=== PATIENT | male | born 1945 | race Caucasian/White ===

== ENCOUNTER 2017-03-26 16:36 | Inpatient (IN) | payer MEDICARE, OTHER ==
[~2017-03-26] VITALS: Ht 177.8 cm; Wt 88.5 kg
[2017-03-26 17:42] LABS: Basophils # (auto) 0 uL; Basophils % (auto) 0.1 % (0.0-2.0); Eosinophils # (auto) 0 uL; Eosinophils % (auto) 0.4 % (0.0-7.0); Hematocrit 38.5 % (41.0-53.0); Hemoglobin 13.3 g/dL (13.5-17.5); Lymphocytes # (auto) 0.6 uL; Lymphocytes % (auto) 6.7 % (10.0-50.0); Mean Corpuscular Hemoglobin 31.8 pg (28.0-32.0); Mean Corpuscular Hgb Conc. 34.5 g/dL (32.0-36.0); Monocytes # (auto) 0.6 uL; Neutrophils # (auto) 7.6 uL; Neutrophils % (auto) 85.8 % (37.0-80.0); Platelet Count (auto) 215 10^3/uL (140-450); Red Blood Cells 4.19 10^6/uL (4.5-5.90); Red Cell Distribution Width 12.9 % (11.8-14.3); White Blood Cell 8.9 10^3/uL (4.4-10.8)
[2017-03-26 17:45] LABS: Albumin 3.1 g/dL (3.4-5.0); BUN/Creatinine Ratio 8.8; Bilirubin, Total 0.5 mg/dL (0.2-1.0); Calcium 7.7 mg/dL (8.5-10.1); Potassium 3.6 mmol/L (3.5-5.1); Total Protein 6.1 g/dL (6.4-8.2)
[2017-03-26] MEDS ORDERED: SODIUM CHLORIDE 0.9% 500 ML IV ONE (17:57)
[2017-03-26 19:40] LABS: Urine Bacteria NONE SEEN /hpf (None Seen); Urine Blood Negative /uL (Negative); Urine Specific Gravity 1.015 (1.001-1.035); Urine WBC 2 /hpf (0 - 3)
[2017-03-26] MEDS ORDERED: TEMAZEPAM 15 MG CAP PO PRN (19:45)
[2017-03-26] MEDS ORDERED: ONDANSETRON HCL 4 MG/2 ML VIAL IV PRN (19:45)
[2017-03-26] MEDS ORDERED: DEXTROSE (50%) 50ML SYRG IV PRN (19:45)
[2017-03-26] MEDS ORDERED: NITROGLYCERIN 0.4 MG SL TAB SL PRN (19:45)
[2017-03-26] MEDS ORDERED: DOCUSATE SOD 100 MG CAP PO PRN (19:45)
[2017-03-26] MEDS ORDERED: ALBUTEROL SULF 2.5 MG/0.5ML(0.5%) NEB SOLN NEB PRN (19:45)
[2017-03-26] MEDS ORDERED: MORPHINE SULFATE 10 MG/ML INJ 1ML SDV IV PRN ×2 (19:45)
[2017-03-26] MEDS ORDERED: HYDROcodone-ACET 5/325MG TAB PO PRN (19:45)
[2017-03-26] MEDS ORDERED: ACETAMINOPHEN 325 MG TAB PO PRN (19:45)
[2017-03-26] MEDS ORDERED: cefTRIAXone 1GM/10ml IVPUSH 10 ML IV ONE (19:45)
[2017-03-26] MEDS: SODIUM CHLORIDE 0.9% 1,000 ML IV SCH ×2 (20:19→23:14)
[2017-03-26] MEDS: AZITHROMYCIN 500MG/ 250ML 250 ML IV ONE ×2 (20:23→20:41)
[2017-03-26 21:50] VITALS: BP 155/82
[2017-03-26] MEDS ORDERED: FAMOTIDINE 20 MG TAB PO SCH (22:00)
[2017-03-26 22:26] LABS: Hematocrit 37.8 % (41.0-53.0); Hemoglobin 13.1 g/dL (13.5-17.5)
[2017-03-26 22:30] VITALS: BP 155/82
[2017-03-26 22:56] VITALS: BP 143/89
[2017-03-26] MEDS: InsuLIN REG 1unit/0.01ml Soln (100units/ml) SC SCH (23:13)
[2017-03-26] MEDS: ACCU-CHEK COMFORT CURVE STRIP VI SCH (23:13)
[2017-03-27 05:00] VITALS: BP 153/78
[2017-03-27 06:39] LABS: Basophils # (auto) 0 uL; Basophils % (auto) 0.3 % (0.0-2.0); Eosinophils # (auto) 0.1 uL; Hematocrit 36.4 % (41.0-53.0); Hemoglobin 12.6 g/dL (13.5-17.5); Lymphocytes # (auto) 0.8 uL; Lymphocytes % (auto) 8.1 % (10.0-50.0); Mean Corpuscular Hemoglobin 32.1 pg (28.0-32.0); Mean Corpuscular Hgb Conc. 34.7 g/dL (32.0-36.0); Mean Corpuscular Volume 92.5 fL (80.0-100.0); Monocytes % (auto) 10.2 % (0.0-12.0); Neutrophils # (auto) 7.8 uL; Neutrophils % (auto) 80.4 % (37.0-80.0); Platelet Count (auto) 196 10^3/uL (140-450); Red Blood Cells 3.94 10^6/uL (4.5-5.90); Red Cell Distribution Width 12.9 % (11.8-14.3); White Blood Cell 9.7 10^3/uL (4.4-10.8)
[2017-03-27 06:49] LABS: INR 1.01 (0.9-1.15)
[2017-03-27] MEDS: ACCU-CHEK COMFORT CURVE STRIP VI SCH ×2 (06:59→12:35)
[2017-03-27] MEDS: InsuLIN REG 1unit/0.01ml Soln (100units/ml) SC SCH ×2 (07:00→11:30)
[2017-03-27 07:03] LABS: Albumin 2.8 g/dL (3.4-5.0); BUN/Creatinine Ratio 8.1; Bilirubin, Total 0.9 mg/dL (0.2-1.0); Calcium 7.7 mg/dL (8.5-10.1); Potassium 3.5 mmol/L (3.5-5.1); Total Protein 5.6 g/dL (6.4-8.2)
[2017-03-27] MEDS ORDERED: LORazepam 2MG/ML-1ML VIAL IV PRN (09:00)
[2017-03-27 09:20] VITALS: BP 146/70
[2017-03-27] MEDS: AZITHROMYCIN 500MG/ 250ML 250 ML IV SCH (12:34)
[2017-03-27] MEDS: cefTRIAXone 1GM/10ml IVPUSH 10 ML IV SCH (12:34)
[2017-03-27] MEDS: Boost Glucose Control 8 Ounces PO SCH ×3 (12:34→17:10)
[2017-03-27] MEDS: MULTIPLE VITAMIN TAB PO SCH (12:34)
[2017-03-27 12:43] VITALS: BP 144/84
[2017-03-27 13:56] LABS: Partial Thromboplastin Time 24.6 sec (22.64-33.71); Prothrombin Time 10.9 sec (9.37-12.3)
[2017-03-27] MEDS: CLINDAMYCIN 600MG IV 50 ML IV SCH ×2 (16:30→21:17)
[2017-03-27] MEDS ORDERED: IOHEXOL 300 MG/ML 100ML BOTTLE IJ ONE (16:38)
[2017-03-27 16:39] VITALS: BP 141/71
[2017-03-27 21:16] VITALS: BP 146/76
[2017-03-27] MEDS: PANTOPRAZOLE 40 MG/10 ML VIAL IV SCH (21:17)
[2017-03-27] MEDS: SODIUM CHLORIDE 0.9% 1,000 ML IV SCH (22:00)
[2017-03-28 04:45] VITALS: BP 142/80
[2017-03-28] MEDS: CLINDAMYCIN 600MG IV 50 ML IV SCH (06:06)
[2017-03-28 07:12] LABS: Basophils # (auto) 0 uL; Basophils % (auto) 0.3 % (0.0-2.0); Eosinophils # (auto) 0.2 uL; Eosinophils % (auto) 3.5 % (0.0-7.0); Hematocrit 37.4 % (41.0-53.0); Hemoglobin 12.7 g/dL (13.5-17.5); Lymphocytes # (auto) 0.9 uL; Lymphocytes % (auto) 12.5 % (10.0-50.0); Mean Corpuscular Hemoglobin 31.6 pg (28.0-32.0); Mean Corpuscular Hgb Conc. 33.9 g/dL (32.0-36.0); Mean Corpuscular Volume 93.1 fL (80.0-100.0); Monocytes # (auto) 0.9 uL; Neutrophils # (auto) 4.9 uL; Neutrophils % (auto) 70.7 % (37.0-80.0); Nucleated Red Blood Cells % 0.1 %; Platelet Count (auto) 207 10^3/uL (140-450); Red Blood Cells 4.02 10^6/uL (4.5-5.90); Red Cell Distribution Width 13.1 % (11.8-14.3); White Blood Cell 6.9 10^3/uL (4.4-10.8)
[2017-03-28 07:41] LABS: BUN/Creatinine Ratio 15.6; Calcium 7.7 mg/dL (8.5-10.1); Potassium 3.7 mmol/L (3.5-5.1)
[2017-03-28] MEDS: Boost Glucose Control 8 Ounces PO SCH ×3 (08:00→18:25)
[2017-03-28 08:02] VITALS: BP 156/77
[2017-03-28] MEDS ORDERED: SODIUM CHLORIDE LOCK 10 ML ONE (08:40)
[2017-03-28] MEDS ORDERED: MIDAZOLAM HCL 5 MG/ML-1ML VIAL ONE (08:40)
[2017-03-28] MEDS ORDERED: LIDOCAINE VISCOUS 2% 15ML UD ONE (08:40)
[2017-03-28] MEDS ORDERED: fentaNYL CITRATE 100 MCG/2 ML VL ONE (08:41)
[2017-03-28] MEDS ORDERED: diphenhdrAMINE HCL 50 MG/1 ML VL ONE (08:41)
[2017-03-28] MEDS ORDERED: NALOXONE HCL 0.4 MG/ML VIAL ONE (08:41)
[2017-03-28] MEDS ORDERED: FLUMAZENIL 0.1 MG/ML INJ 10ML MDV IV ONE (08:41)
[2017-03-28] MEDS ORDERED: hydrALAZINE HCL 20 MG/ML VL IV PRN (09:00)
[2017-03-28] MEDS: cefTRIAXone 1GM/10ml IVPUSH 10 ML IV SCH (09:39)
[2017-03-28] MEDS: PANTOPRAZOLE 40 MG/10 ML VIAL IV SCH (09:39)
[2017-03-28] MEDS: AZITHROMYCIN 500MG/ 250ML 250 ML IV SCH (09:40)
[2017-03-28] MEDS: MULTIPLE VITAMIN TAB PO SCH (09:40)
[2017-03-28 11:40] VITALS: BP 142/79
[2017-03-28 16:24] VITALS: BP 134/58
[2017-03-28] MEDS: SODIUM CHLORIDE 0.9% 1,000 ML IV SCH (21:21)
[2017-03-28] MEDS: PANTOPRAZOLE 40 MG TAB PO SCH (21:21)
[2017-03-28 22:00] VITALS: BP 70/143
[2017-03-29 05:45] VITALS: BP 137/74
[2017-03-29 07:11] LABS: BUN/Creatinine Ratio 16.9; Calcium 8.2 mg/dL (8.5-10.1); Potassium 3.9 mmol/L (3.5-5.1)
[2017-03-29 08:04] VITALS: BP 131/71
[2017-03-29] MEDS ORDERED: AZIT250T7 PO (09:42)
[2017-03-29] MEDS ORDERED: AMOX-263 PO (09:42)
[2017-03-29] MEDS ORDERED: AZITHROMYCIN 250 MG TAB PO SCH (10:00)
[2017-03-29] MEDS: PANTOPRAZOLE 40 MG TAB PO SCH (10:03)
[2017-03-29] MEDS: Boost Glucose Control 8 Ounces PO SCH ×3 (10:03→17:38)
[2017-03-29] MEDS: cefTRIAXone 1GM/10ml IVPUSH 10 ML IV SCH (10:03)
[2017-03-29] MEDS: MULTIPLE VITAMIN TAB PO SCH (10:03)
[2017-03-29] MEDS ORDERED: PANT40T PO (11:13)
[2017-03-29 11:41] VITALS: BP 145/71
[2017-03-29 12:39] VITALS: BP 145/77
[2017-03-29 16:06] VITALS: BP 144/70
== END 2017-03-29 18:00 | disposition home health service (06) | DRG 377 ==
LOC: ER 16:36 → EDBD 16:36 → TELE 16:37 → TELE-WESTW 21:59
PROVIDERS: ADMIT Internal Medicine; ATTEND Internal Medicine
PROC: 0DB68ZX Excision of Stomach, Via Natural or Artificial Opening Endoscopic, Diagnostic (ICD-10-PCS; principal; 2017-03-28 11:42)
DX: K29.71 Gastritis, unspecified, with bleeding (principal); J18.9 Pneumonia, unspecified organism; E44.0 Moderate protein-calorie malnutrition; E11.65 Type 2 diabetes mellitus with hyperglycemia; D63.8 Anemia in other chronic diseases classified elsewhere; E87.8 Other disorders of electrolyte and fluid balance, not elsewhere classified; E87.1 Hypo-osmolality and hyponatremia; E83.42 Hypomagnesemia; E83.51 Hypocalcemia; G47.00 Insomnia, unspecified; G98.8 Other disorders of nervous system; I70.0 Atherosclerosis of aorta; I67.2 Cerebral atherosclerosis; Z68.28 Body mass index [BMI] 28.0-28.9, adult; Z82.49 Family history of ischemic heart disease and other diseases of the circulatory system; Z87.11 Personal history of peptic ulcer disease; Z87.891 Personal history of nicotine dependence; Z90.89 Acquired absence of other organs
CPT/HCPCS: 36415; 43239; 70450; 70551; 71046; 71260; 74177; 80048; 80053; 80061; 81001; 82270; 82378; 82962; 83036; 83735; 83930; 83935; 84300; 84443; 84484; 85014; 85018; 85025; 85610; 85730; 86850; 86900; 86901; 87040; 87086; 92610; 93306; 93886; 94761; 95819; 96361; 96365; 96375; C9113; J2250; J3490